=== PATIENT | female | born 1985 | race Caucasian/White ===

== ENCOUNTER 2016-09-15 16:47 | Emergency (ER) | payer MEDICAID ==
--- NOTE | 2016-09-15 18:36 | EDM.PDOC ---
ED HPI GI/ABDOMINAL - General Chief Complaint: Abdominal Pain Stated Complaint: ABD PAIN Time Seen by Provider: 09/15/16 17:00 Source: Reports: Patient History Limitations: Reports: No limitations - History of Present Illness INITIAL COMMENTS - FREE TEXT/NARRATIVE: 30 years old w f came to the ed 2 days after she woke up with sever pain at her left upper/periumbilical pain, no trauma, no n/v/d pt was seen at the clinic yesterday for same. UA was neg yesterday. FHT were 140 yesterday. Pt was told she has abd cramping. Pt took Ultram yesterday which did not help. LMP pt not remember. Pt stated she is due 01/18/2017. AB1 Symptom Onset Date: 09/14/16 Symptom Onset Time: 06:00 Timing/Duration: Reports: Day(s): Location: periumbilical Quality: Reports: ache, fullness Severity: moderate Improves with: Reports: lying down Worsens with: Reports: sitting up Associated Symptoms (-Female): Reports: denies other symptoms - Related Data Allergies/ADRs: Allergies Allergy/AdvReac Type Severity Reaction Status Date / Time acetaminophen [From Vicodin] Allergy Nausea Verified 09/20/14 13:04 hydrocodone bitartrate Allergy Nausea Verified 09/20/14 13:04 [From Vicodin] Sulfa (Sulfonamide Allergy Burning Verified 09/20/14 13:04 Antibiotics) Home Meds: Home Meds Vits #90/Iron Fum/FA [ Formula] 1 tab-cap PO ASDIRECTED [History] Acetaminophen/oxyCODONE [Percocet 325-5 MG] 1 each PO BID PRN #15 tab 02/07/14 [ Rx] Ferrous Sulfate 324 mg PO BIDM #60 tab.ec 02/07/14 [Rx] Meloxicam [Mobic] 15 mg PO DAILY PRN #20 tablet 05/19/14 [Rx] Past Medical History Genitourinary History: Reports: UTI, recurrent Other Genitourinary History: not present now 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 had c/section in 2013 and plans at [facility] Musculoskeletal History: Reports: Arthritis Other Musculoskeletal History: both knees Neurological History: Reports: Other (see below) 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 Psychiatric History: Reports: Anxiety, Depression - Past Surgical History HEENT Surgical History: Reports: Oral surgery GI Surgical History: Reports: Cholecystectomy Social & Family History - Family History HEENT: Reports: Cataract, Glaucoma OBGYN: Reports: None Musculoskeletal: Reports: Muscular dystrophy Psychiatric: Reports: Anxiety, Depression Endocrine/Metabolic: Reports: Diabetes, type II Oncologic: Reports: Breast, Other (see below) Other Oncologic Family History: melinoma - Tobacco Use Smoking Status *Q: Current Every Day Smoker Years of Tobacco use: 15 Packs/Tins Daily: 0.5 Used Tobacco, but Quit: No Second Hand Smoke Exposure: Yes - Alcohol Use Days Per Week of Alcohol Use: 0 - Recreational Drug Use Recreational Drug Use: No ED ROS GENERAL - Review of Systems Review Of Systems: See Below Constitutional: Reports: no symptoms HEENT: Reports: No symptoms Respiratory: Reports: No Symptoms Cardiovascular: Reports: No symptoms Endocrine: Reports: no symptoms GI/Abdominal: Reports: Abdominal pain : Reports: no symptoms Musculoskeletal: Reports: no symptoms Skin: Reports: no symptoms Neurological: Reports: No Symptoms Psychiatric: Reports: No symptoms Hematologic/Lymphatic: Reports: no symptoms Immunologic: Reports: no symptoms ED EXAM, GI/ABD - Physical Exam Exam: See Below Exam Limited By: No limitations General Appearance: alert, WD/WN, mild distress, obese Eyes: bilateral: normal appearance Ears: normal external exam Nose: normal inspection, normal mucosa Throat/Mouth: Normal inspection, Normal lips, Normal teeth Head: atraumatic, normocephalic Neck: normal inspection, supple, non-tender, full range of motion Respiratory/Chest: no respiratory distress, lungs clear, normal breath sounds, no accessory muscle use Cardiovascular: normal peripheral pulses, regular rate, rhythm, no edema GI/Abdominal: hypoactive bowel sounds, tenderness, mass (left upper abd. ) (Female) Exam: Deferred Rectal (Female) Exam: Deferred Back Exam: normal inspection, full range of motion Extremities: normal inspection, normal range of motion, non-tender, no pedal edema Neurological: alert, oriented, CN II-XII intact, normal cognition, normal gait Psychiatric: normal affect Skin Exam: Warm, Dry, Intact, Normal color, No rash Lymphatic: no adenopathy Course - Vital Signs Text/Narrative:: 30 years old w f came to the ed 2 days after she woke up with sever pain at her left upper/periumbilical pain, no trauma, no n/v/d pt was seen at the clinic yesterday for same. UA was neg yesterday. FHT were 140 yesterday. Pt was told she has abd cramping. Pt took Ultram yesterday which did not help. LMP pt not remember. Pt stated she is due 01/18/2017. AB1 PE: Abd. mass RUQ Labs:basically all NL. HCG is pending Imaging: US is not available Impression: Abd. pain during reexam: Pt refused NS, pain meds, was ambulating fine in the ed in no obvious discomfort Plan: D/C with instructions Last Recorded V/S: Last Vital Signs Temp 36.7 C 09/15/16 18:37 Pulse 72 09/15/16 18:37 Resp 18 09/15/16 18:37 BP 111/66 09/15/16 18:37 Pulse Ox 98 09/15/16 18:37 - Orders/Labs/Meds Labs: Laboratory Tests 09/15/16 09/15/16 09/15/16 Range/Units 17:30 17:30 17:30 WBC 11.2 (4.5-12.0) X10-3/uL RBC 3.65 (3.23-5.20) x10(6)uL Hgb 11.8 (11.5-15.5) g/dL Hct 34.6 (30.0-51.3) % MCV 94.9 (80-96) fL MCH 32.4 (27.7-33.6) pg MCHC 34.2 (32.2-35.4) g/dL RDW 13.1 (11.5-15.5) % Plt Count 254 (125-369) X10(3)uL MPV 8.5 (7.4-10.4) fL Neut % (Auto) 66.0 (46-82) % Lymph % (Auto) 28.2 (13-37) % Dubois % (Auto) 3.6 L (4-12) % Eos % (Auto) 2 (1.0-5.0) % Baso % (Auto) 0 (0-2) % Neut # (Auto) 7.4 (1.6-8.3) # Lymph # (Auto) 3.2 (0.6-5.0) # Dubois # (Auto) 0.4 (0.0-1.3) # Eos # (Auto) 0.2 (0.0-0.8) # Baso # (Auto) 0.0 (0.0-0.2) # Sodium 135 (135-145) mmol/L Potassium 3.8 (3.5-5.3) mmol/L Chloride 107 (100-110) mmol/L Carbon Dioxide 22 L (23-29) mmol/L BUN 7 (5-20) mg/dL Creatinine 0.5 L (0.6-1.3) mg/dL Est Cr Clr Drug Dosing 146.70 mL/min Estimated GFR (MDRD) > 60 (>60) BUN/Creatinine Ratio 14.0 (9-20) Glucose 82 (80-116) mg/dL Calcium 8.5 L (8.6-10.2) mg/dL Total Bilirubin 0.6 (0.1-1.3) mg/dL Direct Bilirubin 0.1 (0.1-0.2) mg/dL AST 10 D (5-27) IU/L ALT 5 L D (14-26) IU/L Alkaline Phosphatase 62 (56-112) IU/L Total Protein 6.7 (6.0-8.0) g/dL Albumin 3.2 L (3.5-5.2) g/dL Amylase 26 L (28-100) U/L HCG, Quant 6205 (2.0 - ) mIU/mL Urine Color (YELLOW) Urine Appearance (CLEAR) Urine pH (5.0-6.5) Ur Specific [place] (1.010-1.025) Urine Protein (NEGATIVE) mg/dL Urine Glucose (UA) (NEGATIVE) mg/dL Urine Ketones (NEGATIVE) mg/dL Urine Occult Blood (NEGATIVE) Urine Nitrite (NEGATIVE) Urine Bilirubin (NEGATIVE) Urine Urobilinogen (NEGATIVE) mg/dL Ur Leukocyte Esterase (NEGATIVE) Urine RBC (0) Urine WBC (0) Ur Squamous Epith Cells (NS,R,O) Urine Bacteria (NS) Urine Mucus (NS) 09/15/16 Range/Units 17:40 WBC (4.5-12.0) X10-3/uL RBC (3.23-5.20) x10(6)uL Hgb (11.5-15.5) g/dL Hct (30.0-51.3) % MCV (80-96) fL MCH (27.7-33.6) pg MCHC (32.2-35.4) g/dL RDW (11.5-15.5) % Plt Count (125-369) X10(3)uL MPV (7.4-10.4) fL Neut % (Auto) (46-82) % Lymph % (Auto) (13-37) % Dubois % (Auto) (4-12) % Eos % (Auto) (1.0-5.0) % Baso % (Auto) (0-2) % Neut # (Auto) (1.6-8.3) # Lymph # (Auto) (0.6-5.0) # Dubois # (Auto) (0.0-1.3) # Eos # (Auto) (0.0-0.8) # Baso # (Auto) (0.0-0.2) # Sodium (135-145) mmol/L Potassium (3.5-5.3) mmol/L Chloride (100-110) mmol/L Carbon Dioxide (23-29) mmol/L BUN (5-20) mg/dL Creatinine (0.6-1.3) mg/dL Est Cr Clr Drug Dosing mL/min Estimated GFR (MDRD) (>60) BUN/Creatinine Ratio (9-20) Glucose (80-116) mg/dL Calcium (8.6-10.2) mg/dL Total Bilirubin (0.1-1.3) mg/dL Direct Bilirubin (0.1-0.2) mg/dL AST (5-27) IU/L ALT (14-26) IU/L Alkaline Phosphatase (56-112) IU/L Total Protein (6.0-8.0) g/dL Albumin (3.5-5.2) g/dL Amylase (28-100) U/L HCG, Quant (2.0 - ) mIU/mL Urine Color Yellow (YELLOW) Urine Appearance Slightly cloudy (CLEAR) Urine pH 6.0 (5.0-6.5) Ur Specific [place] 1.020 (1.010-1.025) Urine Protein Negative (NEGATIVE) mg/dL Urine Glucose (UA) Normal (NEGATIVE) mg/dL Urine Ketones 50 H (NEGATIVE) mg/dL Urine Occult Blood Negative (NEGATIVE) Urine Nitrite Negative (NEGATIVE) Urine Bilirubin Negative (NEGATIVE) Urine Urobilinogen 1 H (NEGATIVE) mg/dL Ur Leukocyte Esterase Negative (NEGATIVE) Urine RBC 0-5 (0) Urine WBC 0-5 (0) Ur Squamous Epith Cells Many H (NS,R,O) Urine Bacteria Moderate H (NS) Urine Mucus Moderate H (NS) Departure - Departure Time of Disposition: 18:36 Disposition: Home, Self-Care 01 Condition: good Clinical Impression: Abdominal pain during Qualifiers: Trimester: second trimester Qualified Code(s): O26.892 - Other specified related conditions, second trimester Referrals: Manoj Souza MD [Primary Care Provider] - Forms: ED Department Discharge Additional Instructions: Please get your abd and pelvic US done at 10 am 09/16/2016. Please take tylenol for pain, no food intake 6 hours before the US is getting performed. Please come back if your symptoms get worse acutely.
[2016-09-15 18:38] VITALS: BP 111/66
== END 2016-09-15 19:10 | disposition home or self-care (01) ==
LOC: FB.ED 16:47
DX: O26.892 Other specified pregnancy related conditions, second trimester (principal); R10.12 Left upper quadrant pain; R10.33 Periumbilical pain; M19.90 Unspecified osteoarthritis, unspecified site; F41.9 Anxiety disorder, unspecified; F32.9 Major depressive disorder, single episode, unspecified; F17.210 Nicotine dependence, cigarettes, uncomplicated; Z87.440 Personal history of urinary (tract) infections; Z79.899 Other long term (current) drug therapy; Z88.2 Allergy status to sulfonamides; Z98.890 Other specified postprocedural states; Z90.49 Acquired absence of other specified parts of digestive tract; Z88.6 Allergy status to analgesic agent; Z3A.23 23 weeks gestation of pregnancy
CPT/HCPCS: 36415; 80048; 80076; 81001; 82150; 84702; 85025; 99284

== ENCOUNTER 2018-12-21 20:34 | Emergency (ER) | payer MEDICAID ==
[2018-12-21] MEDS ORDERED: Ibuprofen 600 MG Tab PO ONE (21:43)
[2018-12-21] MEDS ORDERED: Ondansetron 8 MG Tab.DIS PO ONE (21:43)
[2018-12-21] MEDS ORDERED: Acetaminophen/Codeine 300-30 MG Tab PO ONE (22:04)
[2018-12-21] MEDS ORDERED: Ketorolac 60 MG/2 ML SDV IM ONE (22:36)
[2018-12-21 22:48] VITALS: BP 147/75; PULSE 36
--- NOTE | 2018-12-21 22:52 | EDM.PDOC ---
ED HPI GENERAL MEDICAL PROBLEM - General Chief Complaint: Headache Stated Complaint: DIZZY Time Seen by Provider: 12/21/18 20:34 Source of Information: Reports: Patient, Family History Limitations: Reports: No Limitations - History of Present Illness INITIAL COMMENTS - FREE TEXT/NARRATIVE: 33 y.o.w.f came with her friends to the ed due to the worst headache ever. H/A started after she had an angio CT chest, which was neg for PE. Pt took Motrin for pain, without improvement. Zofran made her to vomit. No trauma. Pt has this kind of Headache never before. She rates the H/A as 10/10. No Dizziness, no vomiting; walking around makes her pain better. No Cp or SOB, no other acute med issues. 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, Other (see below) (zofran) headache Pain Score (Numeric/FACES): 4 - Related Data Allergies Allergy/AdvReac Type Severity Reaction Status Date / Time acetaminophen [From Vicodin] Allergy Nausea Verified 12/21/18 12:47 hydrocodone bitartrate Allergy Nausea Verified 12/21/18 12:47 [From Vicodin] Sulfa (Sulfonamide Allergy Burning Verified 12/21/18 12:47 Antibiotics) Past Medical History Genitourinary History: Reports: UTI, Recurrent Other Genitourinary History: not present now 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/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 in 2013 and plans at [facility] Musculoskeletal History: Reports: Arthritis Other Musculoskeletal History: both knees Neurological History: Reports: Other (See Below) 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" Psychiatric History: Reports: Anxiety, Depression - Infectious Disease History Infectious Disease History: Reports: Chicken Pox - Past Surgical History HEENT Surgical History: Reports: Oral Surgery GI Surgical History: Reports: Cholecystectomy Female Surgical History: Reports: None Neurological Surgical History: Reports: None Dermatological Surgical History: Reports: None Social & Family History - Family History Family Medical History: Noncontributory HEENT: Reports: Cataract, Glaucoma OBGYN: Reports: None Musculoskeletal: Reports: Muscular Dystrophy Psychiatric: Reports: Anxiety, Depression Endocrine/Metabolic: Reports: Diabetes, type II Oncologic: Reports: Breast, Other (See Below) Other Oncologic Family History: melinoma - Tobacco Use Smoking Status *Q: Current Every Day Smoker Years of Tobacco use: 15 Packs/Tins Daily: 1 - Caffeine Use Caffeine Use: Reports: Coffee, Soda - Recreational Drug Use Recreational Drug Use: No ED ROS GENERAL - Review of Systems Review Of Systems: See Below Constitutional: Reports: No Symptoms HEENT: Reports: No Symptoms Respiratory: Reports: No Symptoms Cardiovascular: Reports: No Symptoms Endocrine: Reports: No Symptoms GI/Abdominal: Reports: No Symptoms : Reports: No Symptoms Musculoskeletal: Reports: No Symptoms Skin: Reports: No Symptoms Neurological: Reports: Headache Psychiatric: Reports: No Symptoms Hematologic/Lymphatic: Reports: No Symptoms Immunologic: Reports: No Symptoms - Physical Exam Exam: See Below Exam Limited By: No Limitations General Appearance: Alert, WD/WN, Mild Distress Eye Exam: Bilateral Eye: Normal Inspection Ears: Normal External Exam, Normal Canal Nose: Normal Inspection, Normal Mucosa Throat/Mouth: Normal Inspection, Normal Lips, Normal Voice, No Airway Compromise Head Exam: Atraumatic, Normocephalic Neck: Normal Inspection, Supple, Non-Tender Respiratory/Chest: No Respiratory Distress, Lungs Clear, Normal Breath Sounds, Chest Non-Tender Cardiovascular: Normal Peripheral Pulses, Regular Rate, Rhythm GI/Abdominal: Normal Bowel Sounds, Soft, Non-Tender, No Abnormal Bruit (Female) Exam: Deferred Rectal (Female) Exam: Deferred Neuro Exam (Abbreviated): Alert, Oriented, CN II-XII Intact, Normal Cognition, Normal Gait, No Motor/Sensory Deficits DTR: 1+: Bicep (L) Back Exam: Normal Inspection Extremities: Normal Inspection, Normal Range of Motion, Non-Tender, Normal Capillary Refill Psychiatric: Normal Affect, Normal Mood Skin Exam: Warm, Dry, Intact, Normal Color, No Rash Course - Vital Signs Text/Narrative:: 33 y.o.w.f came with her friends to the ed due to the worst headache ever. H/A started after she had an angio CT chest, which was neg for PE. Pt took Motrin for pain, without improvement. Zofran made her to vomit. No trauma. Pt has this kind of Headache never before. She rates the H/A as 10/10. No Dizziness, no vomiting; walking around makes her pain better. No Cp or SOB, no other acute med issues. BP 157/78 HR 34 Pulse ox 99% on RA RR 14 Temp 37.1 PE:WNWD W F with H/A, Pt finished her Z-Pack yesterday. No Mastoid tenderness Imaging: CT head: NAD as per RAD Labs: not indicated. Impression: Tension Headache, Stanford mastoid effusions Tx: Toradol, Zofran. Reexam: improved Plan: D/C with instructions Last Recorded V/S: Last Vital Signs Temp 36.5 C 12/21/18 22:48 Pulse 36 L 12/21/18 22:48 Resp 14 12/21/18 22:48 BP 147/75 H 12/21/18 22:48 Pulse Ox 100 12/21/18 22:48 - Orders/Labs/Meds Orders: Active Orders 24 hr Category Date Time Status Head wo Cont [CT] Stat Exams 12/21/18 21:43 Taken Meds: Medications Discontinued Medications Generic Name Dose Route Start Last Admin Trade Name Veronica PRN Reason Stop Dose Admin Acetaminophen/Codeine Phosphate 1 tab 12/21/18 22:04 12/21/18 22:08 Tylenol With Codeine No.3 300mg/30mg PO 12/21/18 22:05 1 tab ONETIME ONE Administration Ibuprofen 600 mg 12/21/18 21:43 Motrin PO 12/21/18 21:44 ONETIME ONE Ketorolac Tromethamine 60 mg 12/21/18 22:36 12/21/18 22:40 Toradol IM 12/21/18 22:37 60 mg ONETIME ONE Administration Ondansetron HCl 8 mg 12/21/18 21:43 12/21/18 21:49 Zofran Odt PO 12/21/18 21:44 8 mg ONETIME ONE Administration Departure - Departure Time of Disposition: 22:51 Disposition: Home, Self-Care 01 Condition: Good Clinical Impression: Tension headache - Discharge Information Instructions: Ketorolac injection, Tension Headache, Adult Referrals: PCP,None [Primary Care Provider] - Forms: ED Department Discharge Additional Instructions: Please f/u with your PMD, please take zofran/Motrin for pain, came back if your symptoms get worse acutely - My Orders Last 24 Hours: My Active Orders 12/21/18 21:43 Head wo Cont [CT] Stat - Assessment/Plan Last 24 Hours: My Active Orders 12/21/18 21:43 Head wo Cont [CT] Stat
== END 2018-12-21 22:56 | disposition home or self-care (01) ==
LOC: FB.ED 20:34
DX: G44.209 Tension-type headache, unspecified, not intractable (principal); R06.02 Shortness of breath; Z90.49 Acquired absence of other specified parts of digestive tract; H74.8X3 Other specified disorders of middle ear and mastoid, bilateral; F17.210 Nicotine dependence, cigarettes, uncomplicated; Z88.2 Allergy status to sulfonamides; Z88.5 Allergy status to narcotic agent
CPT/HCPCS: 70450; 71275; 96372; 99284; A9270; J1885; Q9967

== ENCOUNTER 2020-02-07 07:17 | Emergency (ER) | payer MEDICAID, OTHER ==
[2020-02-07 07:36] VITALS: BP 122/90; PULSE 89
[2020-02-07] MEDS ORDERED: Ondansetron 8 MG Tab.DIS PO ONE (07:47)
--- NOTE | 2020-02-07 07:54 | EDM.PDOC ---
ED HPI GENERAL MEDICAL PROBLEM - General Chief Complaint: Headache Stated Complaint: POSSIBLE COVID Time Seen by Provider: 02/07/20 07:40 Source of Information: Reports: Patient, Old Records History Limitations: Reports: No Limitations - History of Present Illness INITIAL COMMENTS - FREE TEXT/NARRATIVE: Eloina comes into [facility] ED with an 18 hr hx of headache, GI upset including nausea, emesis x 5 of partially digested food, and 3-4 diarrheal stools. Headache was cervical-occipital in duration, aching, and nonmigrating. Nausea and vomiting came later in the evening, without blood detected. Her throat was sore this am, with appearance of nonproductive cough. Diarrhea is less certain, as this occurs spontaneously in the past. She took Ibuprofen for the headache, but did not take Zofran for the nausea. 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 headache Pain Score (Numeric/FACES): 6 - Related Data Allergies Allergy/AdvReac Type Severity Reaction Status Date / Time acetaminophen [From Vicodin] Allergy Nausea Verified 02/07/20 07:36 hydrocodone bitartrate Allergy Nausea Verified 02/07/20 07:36 [From Vicodin] Sulfa (Sulfonamide Allergy Burning Verified 02/07/20 07:36 Antibiotics) bandaids Allergy Rash Uncoded 02/07/20 07:44 Home Meds: Home Meds Amoxicillin 500 mg PO TID 02/07/20 [History] Baclofen 20 mg PO TID 02/07/20 [History] Gabapentin [Neurontin] 600 mg PO TID 02/07/20 [History] Teriflunomide [Aubagio] 14 mg PO DAILY 02/07/20 [History] Past Medical History Genitourinary History: Reports: UTI, Recurrent Other Genitourinary History: not present now 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 had c/section in 2013 and plans at [facility] Musculoskeletal History: Reports: Arthritis Other Musculoskeletal History: both knees Neurological History: Reports: MS, Other (See Below) 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" Psychiatric History: Reports: Anxiety, Depression - Infectious Disease History Infectious Disease History: Reports: Chicken Pox - Past Surgical History HEENT Surgical History: Reports: Oral Surgery GI Surgical History: Reports: Cholecystectomy Female Surgical History: Reports: None Neurological Surgical History: Reports: None Dermatological Surgical History: Reports: None Social & Family History - Family History Family Medical History: Noncontributory HEENT: Reports: Cataract, Glaucoma OBGYN: Reports: None Musculoskeletal: Reports: Muscular Dystrophy Psychiatric: Reports: Anxiety, Depression Endocrine/Metabolic: Reports: Diabetes, type II Oncologic: Reports: Breast, Other (See Below) Other Oncologic Family History: melinoma - Tobacco Use Smoking Status *Q: Current Every Day Smoker Years of Tobacco use: 15 Packs/Tins Daily: 1 - Caffeine Use Caffeine Use: Reports: Coffee, Soda - Recreational Drug Use Recreational Drug Use: No ED ROS GENERAL - Review of Systems Review Of Systems: Comprehensive ROS is negative, except as noted in HPI. ED EXAM, GENERAL - Physical Exam Exam: See Below Exam Limited By: No Limitations General Appearance: Alert, WD/WN, No Apparent Distress, Obese Eye Exam: Bilateral Eye: EOMI, Normal Inspection, PERRL Ears: Normal External Exam, Normal TMs Nose: Normal Inspection Throat/Mouth: Normal Lips, Normal Voice, No Airway Compromise, Inflammation Head: Normocephalic Neck: Normal Inspection, Supple, Non-Tender, Full Range of Motion Respiratory/Chest: Lungs Clear, Normal Breath Sounds, Chest Non-Tender Cardiovascular: Normal Peripheral Pulses, Regular Rate, Rhythm, No Edema, No JVD, No Murmur GI/Abdominal: Normal Bowel Sounds, Soft, Non-Tender, No Organomegaly, No Distention, No Mass (Female) Exam: Deferred Rectal (Female) Exam: Deferred Back Exam: Normal Inspection, Full Range of Motion Extremities: Normal Inspection, Normal Range of Motion Neurological: Alert, Oriented, CN II-XII Intact, Normal Cognition, Normal Gait Psychiatric: Normal Affect, Normal Mood Skin Exam: Warm, Dry, Intact, Normal Color Lymphatic: No Adenopathy Course - Vital Signs Text/Narrative:: Patient chose to depart from ED before results were available. Screening labwork including CBC, BMP, RSS, and Covid 19 all baseline or negative. A suspected viral illness will be managed symptomatically, and patient contacted at home. Last Recorded V/S: Last Vital Signs Temp 36.4 C 02/07/20 07:17 Pulse 89 02/07/20 07:17 Resp 20 02/07/20 07:17 BP 122/90 02/07/20 07:17 Pulse Ox 99 02/07/20 07:17 - Orders/Labs/Meds Orders: Active Orders 24 hr Category Date Time Status CULTURE STREP A CONFIRMATION [RM] Stat Lab 02/07/20 08:00 Results STREP SCRN A RAPID W CULT CONF [RM] Stat Lab 02/07/20 08:00 Results UA W/MICROSCOPIC [URIN] Stat Lab 02/07/20 07:47 Ordered Labs: Laboratory Tests 02/07/20 02/07/20 02/07/20 Range/Units 08:00 08:00 08:00 WBC 8.7 (4.5-12.0) X10-3/uL RBC 4.82 (3.23-5.20) x10(6)uL Hgb 14.7 (11.5-15.5) g/dL Hct 45.2 D (30.0-51.3) % MCV 93.8 (80-96) fL MCH 30.6 (27.7-33.6) pg MCHC 32.6 (32.2-35.4) g/dL RDW 12.2 (11.5-15.5) % Plt Count 221 (125-369) X10(3)uL MPV 8.7 (7.4-10.4) fL Neut % (Auto) 72.5 (46-82) % Lymph % (Auto) 19.5 (13-37) % [place] % (Auto) 4.2 (4-12) % Eos % (Auto) 1 (1.0-5.0) % Baso % (Auto) 3 H (0-2) % Neut # (Auto) 6.3 (1.6-8.3) # Lymph # (Auto) 1.7 (0.6-5.0) # [place] # (Auto) 0.4 (0.0-1.3) # Eos # (Auto) 0.1 (0.0-0.8) # Baso # (Auto) 0.2 (0.0-0.2) # Sodium 139 (135-145) mmol/L Potassium 3.9 (3.5-5.3) mmol/L Chloride 103 (100-110) mmol/L Carbon Dioxide 27 (21-32) mmol/L BUN 11 (7-18) mg/dL Creatinine 0.7 (0.55-1.02) mg/dL Est Cr Clr Drug Dosing 100.94 mL/min Estimated GFR (MDRD) > 60 (>60) BUN/Creatinine Ratio 15.7 (9-20) Glucose 238 H (80-116) mg/dL Calcium 9.0 (8.6-10.2) mg/dL SARS-CoV-2 RNA (SIMÓN) Negative (NEGATIVE) Meds: Medications Discontinued Medications Generic Name Dose Route Start Last Admin Trade Name Freq PRN Reason Stop Dose Admin Ondansetron HCl 8 mg 02/07/20 07:47 02/07/20 07:57 Zofran Odt PO 02/07/20 07:48 8 mg ONETIME ONE Administration Departure - Departure Time of Disposition: 09:45 Disposition: Home, Self-Care 01 Condition: Fair Clinical Impression: Viral respiratory illness - Discharge Information *PRESCRIPTION DRUG MONITORING PROGRAM REVIEWED*: Not Applicable *COPY OF PRESCRIPTION DRUG MONITORING REPORT IN PATIENT VIDA: Not Applicable Referrals: Rand Delgado PA-C [Primary Care Provider] - Forms: ED Department Discharge Sepsis Event Note (ED) - Evaluation Sepsis Screening Result: No Definite Risk - Focused Exam Vital Signs: Vital Signs Temp Pulse Resp BP Pulse Ox 02/07/20 07:17 36.4 C 89 20 122/90 99 - Problem List & Annotations (1) Viral respiratory illness SNOMED Code(s): 057160740 Code(s): J98.8 - OTHER SPECIFIED RESPIRATORY DISORDERS; B97.89 - OTH VIRAL AGENTS THE CAUSE OF DISEASES CLASSD [id number] Status: Acute Annotation/Comment:: I suggested throat lozenges, analgesic of choice, cough med of choice, hydration, and rest. - Problem List Review Problem List Initiated/Reviewed/Updated: Yes - My Orders Last 24 Hours: My Active Orders 02/07/20 07:47 UA W/MICROSCOPIC [URIN] Stat 02/07/20 08:00 CULTURE STREP A CONFIRMATION [RM] Stat STREP SCRN A RAPID W CULT CONF [] Stat - Assessment/Plan Last 24 Hours: My Active Orders 02/07/20 07:47 UA W/MICROSCOPIC [URIN] Stat 02/07/20 08:00 CULTURE STREP A CONFIRMATION [RM] Stat STREP SCRN A RAPID W CULT CONF [] Stat Plan: Follow up with PCP if needed.
== END 2020-02-07 08:13 | disposition home or self-care (01) ==
LOC: FB.ED 07:17
DX: J98.8 Other specified respiratory disorders (principal); B34.9 Viral infection, unspecified; F17.210 Nicotine dependence, cigarettes, uncomplicated; E66.9 Obesity, unspecified; Z88.5 Allergy status to narcotic agent; Z88.2 Allergy status to sulfonamides; Z88.8 Allergy status to other drugs, medicaments and biological substances; Z79.899 Other long term (current) drug therapy; Z90.49 Acquired absence of other specified parts of digestive tract; Z68.38 Body mass index [BMI] 38.0-38.9, adult; Z11.59 Encounter for screening for other viral diseases
CPT/HCPCS: 36415; 80048; 85025; 87081; 87635; 87880; 99284; A9270; 99283; U0002

== ENCOUNTER 2020-08-17 22:15 | Emergency (ER) | payer MEDICAID ==
--- NOTE | 2020-08-17 22:47 | EDM.PDOC ---
ED HPI GENERAL MEDICAL PROBLEM - General Chief Complaint: General Stated Complaint: HIGH BLOOD PRESSURE Time Seen by Provider: 08/17/20 22:45 Source of Information: Reports: Patient History Limitations: Reports: No Limitations - History of Present Illness INITIAL COMMENTS - FREE TEXT/NARRATIVE: Presents with elevated BP. Patient tested positive for COVID 10 days ago and received the BAM infusion on 08/11/20. She was told her BP was elevated the day of the infusion. Patient decided to check her BP today, and it was elevated up to 180/114, but was down to 151/108 [employer]IGAR P[employer]ER. She complains of substernal chest pain and cough. Denies prior h/o CAD or HTN. - Related Data Allergies Allergy/AdvReac Type Severity Reaction Status Date / Time acetaminophen [From Vicodin] Allergy Nausea Verified 08/17/20 23:12 hydrocodone bitartrate Allergy Nausea Verified 08/17/20 23:12 [From Vicodin] Sulfa (Sulfonamide Allergy Burning, Verified 08/17/20 23:12 Antibiotics) Watery Eyes bandaids Allergy Rash Uncoded 08/17/20 23:15 seasonal Allergy Sinus Uncoded 08/17/20 23:12 Issues Home Meds: Home Meds Baclofen 20 mg PO TID 02/07/20 [History] Teriflunomide [Aubagio] 14 mg PO BEDTIME 02/07/20 [History] Amphetamine/Dextroamphetamine [Adderall] 20 mg PO BID 08/17/20 [History] Gabapentin [Neurontin] 600 mg PO TID 08/17/20 [History] Past Medical History Genitourinary History: Reports: UTI, Recurrent Other Genitourinary History: not present now 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 in 2013 and plans at [facility] Musculoskeletal History: Reports: Arthritis Other Musculoskeletal History: both knees Neurological History: Reports: MS, Other (See Below) 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" Psychiatric History: Reports: Anxiety, Depression - Infectious Disease History Infectious Disease History: Reports: Chicken Pox - Past Surgical History HEENT Surgical History: Reports: Oral Surgery GI Surgical History: Reports: Cholecystectomy Female Surgical History: Reports: None Neurological Surgical History: Reports: None Dermatological Surgical History: Reports: None Social & Family History - Family History Family Medical History: No Pertinent Family History HEENT: Reports: Cataract, Glaucoma OBGYN: Reports: None Musculoskeletal: Reports: Muscular Dystrophy Psychiatric: Reports: Anxiety, Depression Endocrine/Metabolic: Reports: Diabetes, type II Oncologic: Reports: Breast, Other (See Below) Other Oncologic Family History: melinoma - Tobacco Use Tobacco Use Status *Q: Current Every Day Tobacco User Tobacco Use Within Last Twelve Months: Cigarettes - Caffeine Use Caffeine Use: Reports: Coffee, Soda ED ROS GENERAL - Review of Systems Review Of Systems: Comprehensive ROS is negative, except as noted in HPI. ED EXAM, GENERAL - Physical Exam Exam: See Below Exam Limited By: No Limitations General Appearance: Alert, WD/WN, No Apparent Distress Nose: Normal Inspection Throat/Mouth: No Airway Compromise Head: Atraumatic, Normocephalic Neck: Full Range of Motion Respiratory/Chest: No Respiratory Distress, Lungs Clear, Normal Breath Sounds Cardiovascular: Regular Rate, Rhythm, No Murmur Neurological: Alert, Normal Cognition Psychiatric: Normal Affect, Normal Mood Skin Exam: Warm, Dry, Intact #1 Interpretation EKG Date: 08/17/20 Time: 22:48 Rhythm: NSR Rate (Beats/Min): 99 [place]: RAD-Right [place] Deviation (borderline) P-Wave: Present QRS: Normal ST-T: Normal QT: Normal Comparison: NA - No Prior EKG Course - Vital Signs Last Recorded V/S: Last Vital Signs Temp 36.6 C 08/17/20 23:35 Pulse 100 08/17/20 23:35 Resp 16 08/17/20 23:35 BP 139/88 08/17/20 23:35 Pulse Ox 97 08/17/20 23:35 - Orders/Labs/Meds Orders: Active Orders 24 hr Category Date Time Status EKG Documentation Completion [RC] ASDIRECTED Care 08/17/20 22:45 Active CXR [Chest 2V] [CR] Stat Exams 08/17/20 22:44 Taken EKG 12 Lead [EK] Stat Ther 08/17/20 22:44 Ordered Labs: Laboratory Tests 08/17/20 08/17/20 08/17/20 Range/Units 22:55 22:55 22:55 WBC 9.5 (3.0-10.3) x10-3/uL RBC 4.20 (3.60-5.20) x10(6)uL Hgb 13.3 (11.4-15.5) g/dL Hct 40.0 (34.2-48.2) % MCV 95.2 (76.7-100.5) fL MCH 31.6 (23.9-33.9) pg MCHC 33.2 (31.9-34.8) g/dL RDW 13.0 (12.3-16.5) % Plt Count 185 (151-488) x10(3)uL MPV 9.4 (7.1-12.4) fL Neut % (Auto) 64.3 (30.8-76.2) % Lymph % (Auto) 29.1 (18.4-52.1) % [place] % (Auto) 4.3 L (4.4-15.7) % Eos % (Auto) 1.5 (0.6-8.1) % Baso % (Auto) 0.8 (0.2-1.5) % Neut # (Auto) 6.1 (1.5-6.3) x10-3/uL Lymph # (Auto) 2.8 (1.0-4.4) x10-3/uL [place] # (Auto) 0.4 (0.3-1.0) x10-3/uL Eos # (Auto) 0.1 (0.0-0.8) x10-3/uL Baso # (Auto) 0.1 (0.0-0.1) x10-3/uL Sodium 141 (135-145) mmol/L Potassium 3.3 L (3.5-5.3) mmol/L Chloride 103 (100-110) mmol/L Carbon Dioxide 27 (21-32) mmol/L BUN 11 (7-18) mg/dL Creatinine 0.7 (0.55-1.02) mg/dL Est Cr Clr Drug Dosing 100.94 mL/min Estimated GFR (MDRD) > 60 (>60) BUN/Creatinine Ratio 15.7 (9-20) Glucose 132 H D (80-116) mg/dL Calcium 9.0 (8.6-10.2) mg/dL Total Bilirubin 0.5 (0.1-1.3) mg/dL AST 16 (5-25) IU/L ALT 17 (12-36) U/L Alkaline Phosphatase 108 (56-112) IU/L Troponin I 3.7 L (4.0-60.3) pg/mL Total Protein 6.7 (6.0-8.0) g/dL Albumin 3.3 L (3.5-5.2) g/dL Globulin 3.4 g/dL Albumin/Globulin Ratio 1.0 - Radiology Interpretation Free Text/Narrative:: CXR: No acute process. (ED provider interpretation) - Re-Assessments/Exams Free Text/Narrative Re-Assessment/Exam: 08/17/20 23:58 BP improved spontaneously to 139/88 Departure - Departure Time of Disposition: 23:58 Disposition: Home, Self-Care 01 Condition: Good Clinical Impression: Hypertension Qualifiers: Hypertension type: unspecified Qualified Code(s): I10 - Essential (primary) hypertension - Discharge Information *PRESCRIPTION DRUG MONITORING PROGRAM REVIEWED*: No *COPY OF PRESCRIPTION DRUG MONITORING REPORT IN PATIENT VIDA: Not Applicable Instructions: Hypertension, Adult, [id number], Steps to Quit Smoking, [id number] Referrals: Rand Delgado PA-C [Primary Care Provider] - 2 Days Forms: ED Department Discharge Additional Instructions: Follow up with your primary physician in 2-3 days. Return to the ER as needed. Sepsis Event Note (ED) - Focused Exam Vital Signs: Vital Signs Temp Pulse Resp BP Pulse Ox 08/17/20 23:35 36.6 C 100 16 139/88 97 08/17/20 22:30 36.6 C 103 H 18 154/99 H 98 - My Orders Last 24 Hours: My Active Orders 08/17/20 22:44 CXR [Chest 2V] [CR] Stat EKG 12 Lead [EK] Stat 08/17/20 22:45 EKG Documentation Completion [RC] ASDIRECTED - Assessment/Plan Last 24 Hours: My Active Orders 08/17/20 22:44 CXR [Chest 2V] [CR] Stat EKG 12 Lead [EK] Stat 08/17/20 22:45 EKG Documentation Completion [RC] ASDIRECTED
--- NOTE | 2020-08-17 23:02 | PCM.EKG ---
#1 Interpretation EKG Date: 08/17/20 Time: 22:48 Rhythm: NSR Rate (Beats/Min): 99 [place]: RAD-Right [place]ena Deviation (borderline) P-Wave: Present QRS: Normal ST-T: Normal QT: Normal Comparison: NA - No Prior EKG
[2020-08-17 23:39] VITALS: BP 139/88; PULSE 100
--- NOTE | 2020-08-18 11:41 | CR ---
INDICATION: Chest pain, cough, shortness of breath, high blood pressure. Diagnosed with COVID 08/06/20. CHEST, TWO VIEWS: PA and lateral views of the chest were obtained 08/17/20 - no comparisons. The heart and mediastinum are unremarkable. A mild dextroconcave scoliosis of the lower middle thoracic spine is noted. Evidence of exogenous obesity is noted. An active infiltrate or effusion was not identified. IMPRESSION: 1. No acute process. 2. Exogenous obesity. 3. Mild scoliosis. MTDD
== END 2020-08-18 00:10 | disposition home or self-care (01) ==
LOC: FB.ED 22:15
DX: I10 Essential (primary) hypertension (principal); R07.2 Precordial pain; R05 Cough; M19.90 Unspecified osteoarthritis, unspecified site; Z86.16 Personal history of COVID-19; Z72.0 Tobacco use; Z88.6 Allergy status to analgesic agent; Z88.5 Allergy status to narcotic agent; Z88.2 Allergy status to sulfonamides; Z91.048 Other nonmedicinal substance allergy status
CPT/HCPCS: 36415; 71046; 80053; 84484; 85025; 93005; 93010; 99283; 99284-25

== ENCOUNTER 2020-10-09 23:23 | Emergency (ER) | payer MEDICAID ==
[2020-10-10 00:04] VITALS: BP 144/92; PULSE 90
--- NOTE | 2020-10-10 00:16 | EDM.PDOC ---
ED HPI GENERAL MEDICAL PROBLEM - General Chief Complaint: Cardiovascular Problem Stated Complaint: HIGH BP Time Seen by Provider: 10/09/20 23:50 Source of Information: Reports: Patient History Limitations: Reports: No Limitations - History of Present Illness INITIAL COMMENTS - FREE TEXT/NARRATIVE: 34-year-old female who reports that she received her infusion of Ocrevus for her multiple sclerosis and is given Decadron IV. She tolerated this infusion well at the time without any symptoms. Apparently when she was first diagnosed with MS and had optic neuritis he was given high-dose Solu-Medrol and did have quite a bit of adverse symptoms related to this with headache and malaise and nausea with vomiting. She states she was really feeling okay except for some mild photophobia that she has had for quite some time until approximately one hour prior to arrival tonight when she developed feelings that her heart was beating fast and she was feeling somewhat short of breath with this. She took her blood pressure and it was 158/120 and her pulse rate was in the 110-120 range. She felt "ichy all over". She had nausea but no vomiting. No chest pain associated with this. When she arrives to the emergency department, her symptoms seem to be improving and by the time I am evaluating her, her symptoms are almost gone. Her pulse rate is in the 80s and her blood pressure is 140s over 90s. No fevers or chills. No cough. She really denies any pain at present. She would rate her pain as a 0/10. The patient also tells me that she has been having increased urination over the past week or so and they even checked her urine test today and it showed no evidence of infection. She has been diagnosed with diabetes mellitus but is on no medications at present. She has a diabetic doctor that she is to follow-up with on this coming Tuesday. There are no other associated signs or symptoms. There are no other modifying factors. Review the patient's records reveal that she was here and of July 2020 with very similar symptoms and had complete workup which included blood tests, EKG and chest x-ray and all of this was reassuring. And, apparently, her symptoms resolved while she was in the emergency department at that time as well. 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.) - Related Data Allergies Allergy/AdvReac Type Severity Reaction Status Date / Time acetaminophen [From Vicodin] Allergy Nausea Verified 10/10/20 00:18 hydrocodone bitartrate Allergy Nausea Verified 10/10/20 00:18 [From Vicodin] Sulfa (Sulfonamide Allergy Burning, Verified 10/10/20 00:18 Antibiotics) Watery Eyes bandaids Allergy Rash Uncoded 10/10/20 00:18 seasonal Allergy Sinus Uncoded 10/10/20 00:18 Issues Home Meds: Home Meds Baclofen 20 mg PO TID 02/07/20 [History] Teriflunomide [Aubagio] 14 mg PO BEDTIME 02/07/20 [History] Amphetamine/Dextroamphetamine [Adderall] 20 mg PO BID 08/17/20 [History] Gabapentin [Neurontin] 600 mg PO TID 08/17/20 [History] Past Medical History Genitourinary History: Reports: UTI, Recurrent 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 History of C-sections. Musculoskeletal History: Reports: Arthritis Other Musculoskeletal History: Both knees. Neurological History: Reports: MS, Other (See Below) Other Neuro History: States Trigeminal Neuralogia-history of [place] Palsy. Experiences leg spasms and nerve pain. Psychiatric History: Reports: ADD, Anxiety, Depression Endocrine/Metabolic History: Reports: Obesity/BMI 30+ - Infectious Disease History Infectious Disease History: Reports: Chicken Pox - Past Surgical History HEENT Surgical History: Reports: Oral Surgery ([place] teeth extraction) GI Surgical History: Reports: Cholecystectomy Female Surgical History: Reports: LEEP Endocrine Surgical History: Reports: Other (See Below) (Partial thyroidectomy) Social & Family History - Family History HEENT: Reports: Cataract, Glaucoma OBGYN: Reports: None Musculoskeletal: Reports: Muscular Dystrophy Psychiatric: Reports: Anxiety, Depression Endocrine/Metabolic: Reports: Diabetes, type II Oncologic: Reports: Breast, Other (See Below) Other Oncologic Family History: Melanoma. 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 This has resolved now.) Cardiovascular: Reports: Palpitations GI/Abdominal: Reports: Nausea : Reports: Other (Increased urination) Musculoskeletal: Reports: Other Skin: Reports: No Symptoms Neurological: Reports: No Symptoms Psychiatric: Reports: Anxiety Hematologic/Lymphatic: Reports: No Symptoms Immunologic: Reports: Other (Received infusion of Ocrevus today.) ED EXAM, GENERAL - Physical Exam Exam: See Below Exam Limited By: No Limitations General Appearance: Alert, No Apparent Distress, Anxious, Obese Eye Exam: Bilateral Eye: EOMI, Normal Inspection Ears: Normal External Exam, Hearing Grossly Normal Ear Exam: Bilateral Ear: Auricle Normal Nose: Normal Inspection, Normal Mucosa, No Blood, Nasal Drainage Throat/Mouth: Normal Inspection, Normal Oropharynx, Normal Voice, No Airway Compromise Head: Atraumatic, Normocephalic Neck: Normal Inspection, Supple, Non-Tender, Full Range of Motion Respiratory/Chest: No Respiratory Distress, Normal Breath Sounds, No Accessory Muscle Use, Chest Non-Tender, Wheezing (Bilateral wheezes that clear with cough. Good air movement.) Cardiovascular: Normal Peripheral Pulses, Regular Rate, Rhythm, No Edema Peripheral Pulses: 2+: Radial (L), Radial (R), Dorsalis Pedis (L), Dorsalis Pedis (R) GI/Abdominal: Normal Bowel Sounds, Soft, Non-Tender Back Exam: Normal Inspection, Full Range of Motion Extremities: Normal Inspection, Normal Range of Motion, No Pedal Edema, Normal Capillary Refill, Pedal Edema Neurological: Alert, Oriented, CN II-XII Intact, No Motor/Sensory Deficits Psychiatric: Normal Affect, Anxious Skin Exam: Warm, Dry, Intact, Normal Color, No Rash Course - Vital Signs Last Recorded V/S: Last Vital Signs Temp 36.6 C 10/09/20 23:30 Pulse 90 10/09/20 23:30 Resp 16 10/09/20 23:30 BP 144/92 H 10/09/20 23:30 Pulse Ox 99 10/09/20 23:30 - Re-Assessments/Exams Free Text/Narrative Re-Assessment/Exam: 10/10/20 00:08: Patient is awake and alert. She seems somewhat anxious. Her blood pressure is improved over what she has reported. Her pulse rate is in the 80s. Her exam is otherwise reassuring. She does have a blood sugar of 243 (the patient self checked it). She is also currently under quite a bit of stress in her life and has a court date tomorrow and she has been drinking caffeinated and regular pop and has been eating quite a bit of concentrated sweets today. She did have a reaction to Solu-Medrol the past and she did receive dexamethasone today. She was seen for elevated blood pressure and similar type symptoms about a month and a half ago and all of her blood tests were reassuring and her EKG was normal. Other than the blood sugar that she provided for me, I don't feel that there is a need for any further diagnostic testing at this point. Her symptoms seem to be going away and she is improving. Feel that she is stable for discharge at this point. I discussed all this with the patient and she is in agreement with the plan for discharge. She does need to keep her appointment with her doctor on Tuesday that she has scheduled in regard to her diabetes mellitus. I did advise the patient to stick with diabetic diet. Departure - Departure Time of Disposition: 00:18 Disposition: Home, Self-Care 01 Condition: Good (Stable.) Clinical Impression: Elevated blood pressure reading, Multiple sclerosis Diabetes mellitus type 2, uncontrolled Qualifiers: Glycemic state: with hyperglycemia Qualified Code(s): E11.65 - Type 2 diabetes mellitus with hyperglycemia Instructions: Hyperglycemia, [id number], Hypertension, Adult, [id number], Diabetes Mellitus and Nutrition, Adult Referrals: Rand Delgado PA-C [Primary Care Provider] - Forms: ED Department Discharge Additional Instructions: Your blood pressure improved while you were in the emergency department. Your heart rate was normal in the emergency department. Your exam was reassuring. Your blood sugar was elevated when you checked it in the emergency department. Rest. You need to increase your fluid intake. You should avoid any salt or sodium. You should avoid any concentrated sweets and processed foods. Keep your appointment with your diabetic doctor this coming week. Back to the emergency department for persistent/recurrent fast heart rate, unrelenting vomiting, trouble breathing or chest pain, severe weakness or any other concerning signs or symptoms. Sepsis Event Note (ED) - Evaluation Sepsis Screening Result: No Definite Risk - Focused Exam Vital Signs: Vital Signs Temp Pulse Resp BP Pulse Ox 10/09/20 23:30 36.6 C 90 16 144/92 H 99
== END 2020-10-10 00:25 | disposition home or self-care (01) ==
LOC: FB.ED 23:23
DX: E11.65 Type 2 diabetes mellitus with hyperglycemia (principal); R03.0 Elevated blood-pressure reading, without diagnosis of hypertension; G35 Multiple sclerosis; E66.9 Obesity, unspecified; Z68.35 Body mass index [BMI] 35.0-35.9, adult; Z88.6 Allergy status to analgesic agent; Z88.2 Allergy status to sulfonamides; Z91.048 Other nonmedicinal substance allergy status; Z79.899 Other long term (current) drug therapy
CPT/HCPCS: 99284

== ENCOUNTER 2020-10-27 17:47 | Emergency (ER) | payer MEDICAID ==
--- NOTE | 2020-10-27 18:03 | EDM.PDOC ---
ED HPI GENERAL MEDICAL PROBLEM - General Time Seen by Provider: 10/27/20 18:03 Source of Information: Reports: Patient History Limitations: Reports: No Limitations - History of Present Illness INITIAL COMMENTS - FREE TEXT/NARRATIVE: 34 year-old female who reports that she got her second dose of Ocevus and dexamethasone just on Tuesday of this last week. Should be noted that the past 2 time she has received his medication she has had nausea and vomiting and has presented to the emergency department. She reports that after the medication was given she was feeling well until today at about 2:30 to 3 PM. She developed acute onset of occipital and retro-orbital headache on the right side. It was associated with nausea and vomiting and she reports she's had vomiting times about 15. Prior to this they were outside in enjoying the weather and day and she felt that she had been drinking liquids but it was rather hot. She currently rates her headache as a 10/10. There is definite photophobia associated with it and continued nausea with dry heaving. This is a pattern she has had with her headaches in the past and that she has had a headache very similar to this and review of her records show that she has had these type of symptoms after her shins this recently. No fevers or chills. No arm or leg weakness. No fevers or chills. No sore throat or trouble swallowing. She had been eating and drinking normally prior to this. No diarrhea. There are no other associated signs or symptoms. There are no other modifying factors. Onset: Today (2:30 to 3 PM) Duration: Constant Location: Reports: Head Quality: Reports: Sharp, Throbbing Severity: Severe Improves with: Reports: None Worsens with: Reports: Other (Light), Movement Context: Reports: Other (As above.) Associated Symptoms: Reports: No Other Symptoms (Except as above.) Treatments BENEFITS DIRECTOR: Reports: Other (see below) (Nothing.) Headache Pain Score (Numeric/FACES): 10 - Related Data Allergies Allergy/AdvReac Type Severity Reaction Status Date / Time acetaminophen [From Vicodin] Allergy Nausea Verified 10/10/20 00:18 hydrocodone bitartrate Allergy Nausea Verified 10/10/20 00:18 [From Vicodin] Sulfa (Sulfonamide Allergy Burning, Verified 10/10/20 00:18 Antibiotics) Watery Eyes bandaids Allergy Rash Uncoded 10/10/20 00:18 seasonal Allergy Sinus Uncoded 10/10/20 00:18 Issues Home Meds: Home Meds Baclofen 20 mg PO TID 02/07/20 [History] Teriflunomide [Aubagio] 14 mg PO BEDTIME 02/07/20 [History] Amphetamine/Dextroamphetamine [Adderall] 20 mg PO BID 08/17/20 [History] Gabapentin [Neurontin] 600 mg PO TID 08/17/20 [History] Past Medical History Genitourinary History: Reports: UTI, Recurrent Other Genitourinary History: not present now Other [employer] History: States she has 5 children. History of C-sections. Musculoskeletal History: Reports: Arthritis Other Musculoskeletal History: Both knees. 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 Experiences leg spasms and nerve pain. Psychiatric History: Reports: ADD, Anxiety, Depression Endocrine/Metabolic History: Reports: Obesity/BMI 30+ - Infectious Disease History Infectious Disease History: Reports: Chicken Pox - Past Surgical History HEENT Surgical History: Reports: Oral Surgery ([place] teeth extraction) Female Surgical History: Reports: LEEP Endocrine Surgical History: Reports: Other (See Below) (Partial thyroidectomy) Social & Family History - Family History HEENT: Reports: Cataract, Glaucoma OBGYN: Reports: None Musculoskeletal: Reports: Muscular Dystrophy Psychiatric: Reports: Anxiety, Depression Endocrine/Metabolic: Reports: Diabetes, type II Oncologic: Reports: Breast, Other (See Below) Other Oncologic Family History: Melanoma. - Tobacco Use Tobacco Use Status *Q: Current Some Day Tobacco User - Caffeine Use Caffeine Use: Reports: Coffee, Soda - Alcohol Use Alcohol Use History: Yes - Living Situation & Occupation Living situation: Reports: Occupation: Other ([id number] mom) ED ROS GENERAL - Review of Systems Review Of Systems: See Below Constitutional: Reports: Malaise. Denies: Fever, Chills HEENT: Denies: Hearing Loss, Vision Change Respiratory: Reports: Shortness of Breath, Pleuritic Chest Pain. Denies: Hemoptysis Cardiovascular: Reports: No Symptoms, Chest Pain Endocrine: Reports: Fatigue GI/Abdominal: Reports: Abdominal Pain : Denies: Dysuria, Hematuria Musculoskeletal: Denies: No Symptoms Skin: Reports: Diaphoresis. Denies: Rash Neurological: Reports: Headache, Weakness (Generalized) Psychiatric: Denies: Confusion, Depression Hematologic/Lymphatic: Denies: Easy Bleeding, Easy Bruising Immunologic: Reports: Other (Patient is immunized) ED EXAM, GENERAL - Physical Exam Exam: See Below Exam Limited By: No Limitations General Appearance: Alert, WD/WN, No Apparent Distress Eye Exam: Bilateral Eye: EOMI, Normal Inspection Ears: Normal External Exam, Hearing Grossly Normal Ear Exam: Bilateral Ear: Auricle Normal Nose: Normal Inspection, Normal Mucosa, No Blood Throat/Mouth: Normal Voice, No Airway Compromise, Other (Dry mucous membranes) Head: Atraumatic, Normocephalic Neck: Normal Inspection, Supple, Non-Tender, Full Range of Motion Respiratory/Chest: No Respiratory Distress, Lungs Clear, Normal Breath Sounds, No Accessory Muscle Use, Chest Non-Tender Cardiovascular: Normal Peripheral Pulses, Regular Rate, Rhythm, No Murmur Peripheral Pulses: 2+: Radial (L), Radial (R) GI/Abdominal: Normal Bowel Sounds, Soft, Non-Tender, No Mass Back Exam: Normal Inspection, Full Range of Motion. No: CVA Tenderness (R), CVA Tenderness (L) Extremities: Normal Inspection, Normal Range of Motion, Non-Tender, No Pedal Edema, Normal Capillary Refill Neurological: Alert, Oriented, CN II-XII Intact, Normal Cognition, No Motor/Sensory Deficits Skin Exam: Intact, Normal Color, Diaphoretic Course - Vital Signs Last Recorded V/S: Last Vital Signs Temp 37.1 C 10/27/20 17:48 Pulse 78 10/27/20 19:00 Resp 20 10/27/20 19:00 BP 163/106 H 10/27/20 19:00 Pulse Ox 100 10/27/20 19:00 - Orders/Labs/Meds Orders: Active Orders 24 hr Category Date Time Status Sodium Chloride 0.9% [Normal Saline] 1,000 ml Med 10/27/20 18:30 Active IV ASDIRECTED Sodium Chloride 0.9% [Saline Flush] Med 10/27/20 18:15 Active 10 ml FLUSH ASDIRECTED PRN Peripheral IV Insertion Adult [OM.PC] Routine Oth 10/27/20 18:15 Ordered Medication Orders Sodium Chloride (Normal Saline) 1,000 mls @ 100 mls/hr IV ASDIRECTED NILTON Last Admin: 10/27/20 20:37 Dose: 100 mls/hr Documented by: JACK Sodium Chloride (Sodium Chloride 0.9% 10 Ml Syringe) 10 ml FLUSH ASDIRECTED PRN PRN Reason: Keep Vein Open Labs: Laboratory Tests 10/27/20 10/27/20 Range/Units 18:35 18:35 WBC 15.3 H (3.0-10.3) x10-3/uL RBC 4.60 (3.60-5.20) x10(6)uL Hgb 14.5 (11.4-15.5) g/dL Hct 44.0 (34.2-48.2) % MCV 95.5 (76.7-100.5) fL MCH 31.6 (23.9-33.9) pg MCHC 33.1 (31.9-34.8) g/dL RDW 13.3 (12.3-16.5) % Plt Count 233 (151-488) x10(3)uL MPV 8.5 (7.1-12.4) fL Add Manual Diff Yes Neutrophils % (Manual) 86 H (46-82) % Band Neutrophils % 1 (0-6) % Lymphocytes % (Manual) 7 L (13-37) % Monocytes % (Manual) 5 (4-12) % Eosinophils % (Manual) 1 (0-5) % Sodium 141 (135-145) mmol/L Potassium 3.7 (3.5-5.3) mmol/L Chloride 106 (100-110) mmol/L Carbon Dioxide 27 (21-32) mmol/L BUN 13 (7-18) mg/dL Creatinine 0.7 (0.55-1.02) mg/dL Est Cr Clr Drug Dosing TNP Estimated GFR (MDRD) > 60 (>60) BUN/Creatinine Ratio 18.6 (9-20) Glucose 198 H (80-116) mg/dL Calcium 8.0 L (8.6-10.2) mg/dL Magnesium 2.0 (1.8-2.5) mg/dL Total Bilirubin 0.9 (0.1-1.3) mg/dL AST 20 D (5-25) IU/L ALT 24 D (12-36) U/L Alkaline Phosphatase 101 (56-112) IU/L Total Protein 6.9 (6.0-8.0) g/dL Albumin 3.5 (3.5-5.2) g/dL Globulin 3.4 g/dL Albumin/Globulin Ratio 1.0 Meds: Medications Generic Name Dose Route Start Last Admin Trade Name Dhirajq PRN Reason Stop Dose Admin Sodium Chloride 1,000 mls @ 100 mls/hr 10/27/20 18:30 10/27/20 20:37 Normal Saline IV 100 mls/hr ASDIRECTED NILTON Administration Sodium Chloride 10 ml 10/27/20 18:15 Sodium Chloride 0.9% 10 Ml Syringe FLUSH ASDIRECTED PRN Keep Vein Open Discontinued Medications Generic Name Dose Route Start Last Admin Trade Name Freq PRN Reason Stop Dose Admin Diphenhydramine HCl 50 mg 10/27/20 18:16 10/27/20 19:29 Diphenhydramine 50 Mg/Ml Sdv IVPUSH 10/27/20 18:17 50 mg ONETIME ONE Administration Sodium Chloride 1,000 mls @ 999 mls/hr 10/27/20 18:16 10/27/20 19:25 Normal Saline IV 10/27/20 19:16 999 mls/hr .BOLUS ONE Administration Ketorolac Tromethamine 30 mg 10/27/20 18:16 10/27/20 19:41 Ketorolac 30 Mg/Ml Sdv IVPUSH 10/27/20 18:17 30 mg ONETIME ONE Administration Prochlorperazine Edisylate 10 mg 10/27/20 18:16 10/27/20 19:36 Prochlorperazine 10 Mg/2 Ml Sdv IVPUSH 10/27/20 18:17 10 mg ONETIME ONE Administration - Re-Assessments/Exams Free Text/Narrative Re-Assessment/Exam: 10/27/20 21:30: Patient's white blood cell count was elevated at 15. She did just receive Decadron at the end of last week with her Ocevus. She really had no antecedent problems prior to this occurring. She was outside and it was quite hot. I suspect that she had some heat exhaustion and her headache is very similar to headaches that she has had in the past. Patient has been resting comfortably. She was asleep when I came into the room but was easily awakened. She has had no further vomiting. She states her nausea has resolved. She states she feels much improved. She reports that her headache is down to 2/10. She no longer has any photophobia. She is moving her neck well. She feels that she could be discharged home. She is hemodynamically and neurologically stable at this point. Precautions and reasons for return to the emergency department were discussed with the patient while she was in the emergency department and were detailed in her discharge instructions. Departure - Departure Time of Disposition: 21:40 Disposition: Home, Self-Care 01 Condition: Good (Improved) Clinical Impression: Headache Qualifiers: Headache type: unspecified Headache chronicity pattern: acute headache Intractability: not intractable Qualified Code(s): R51.9 - Headache, unspecified Heat exhaustion Qualifiers: Encounter type: initial encounter Qualified Code(s): T67.5XXA - Heat exhaustion, unspecified, initial encounter Vomiting Qualifiers: Vomiting type: unspecified Vomiting Intractability: non-intractable Nausea presence: with nausea Qualified Code(s): R11.2 - Nausea with vomiting, unspecified - Discharge Information Instructions: Heat Exhaustion, Preventing Heat Exhaustion, Adult, Nausea and Vomiting, Adult, [id number], Dehydration, Adult, [id number] Referrals: Rand Delgado PA-C [Primary Care Provider] - Forms: ED Department Discharge Additional Instructions: You appear to be having a headache like you have had in the past. I think that it may have been related to some heat exhaustion that you sustained today and to your recent infusion of dexamethasone and Ocevus that you have received at the end of this last week. He did appear to be somewhat dehydrated and you have responded well to the IV fluids and the medications that you were given. Your blood tests were reassuring. Your white blood cell count was somewhat elevated but I think this is most probably due to the dexamethasone that you received last week. You should rest. You should drink plenty of fluids. Back to the emergency department for headache, fever, recurrent vomiting, severe weakness or any other concerning signs or symptoms. Sepsis Event Note (ED) - Focused Exam Vital Signs: Vital Signs Temp Pulse Resp BP Pulse Ox 10/27/20 19:00 78 20 163/106 H 100 10/27/20 18:31 73 20 144/80 H 100 10/27/20 18:01 86 20 162/95 H 98 10/27/20 17:52 64 20 157/83 H 98 10/27/20 17:48 37.1 C 72 20 153/88 H 100 - My Orders Last 24 Hours: My Active Orders 10/27/20 18:15 Sodium Chloride 0.9% [Saline Flush] 10 ml FLUSH ASDIRECTED PRN Peripheral IV Insertion Adult [OM.PC] Routine 10/27/20 18:30 Sodium Chloride 0.9% [Normal Saline] 1,000 ml IV ASDIRECTED - Assessment/Plan Last 24 Hours: My Active Orders 10/27/20 18:15 Sodium Chloride 0.9% [Saline Flush] 10 ml FLUSH ASDIRECTED PRN Peripheral IV Insertion Adult [OM.PC] Routine 10/27/20 18:30 Sodium Chloride 0.9% [Normal Saline] 1,000 ml IV ASDIRECTED
[2020-10-27] MEDS ORDERED: Sodium Chloride 0.9% 10 ML Syringe FLUSH PRN (18:15)
[2020-10-27] MEDS ORDERED: Prochlorperazine 10 MG/2 ML SDV IVPUSH ONE (18:16)
[2020-10-27] MEDS ORDERED: diphenhydrAMINE 50 MG/ML SDV IVPUSH ONE (18:16)
[2020-10-27] MEDS ORDERED: Ketorolac 30 MG/ML SDV IVPUSH ONE (18:16)
[2020-10-27] MEDS ORDERED: Sodium Chloride 0.9% 1,000 ML IV ONE (18:16)
[2020-10-27] MEDS ORDERED: Sodium Chloride 0.9% 1,000 ML IV SCH (18:30)
[2020-10-28 07:55] VITALS: BP 141/92; PULSE 74
== END 2020-10-27 22:10 | disposition home or self-care (01) ==
LOC: FB.ED 17:47
DX: T67.5XXA Heat exhaustion, unspecified, initial encounter (principal); R51.9 Headache, unspecified; R11.2 Nausea with vomiting, unspecified; Z88.2 Allergy status to sulfonamides; Z88.5 Allergy status to narcotic agent; Z88.8 Allergy status to other drugs, medicaments and biological substances; Z91.048 Other nonmedicinal substance allergy status; E66.9 Obesity, unspecified; Z68.30 Body mass index [BMI] 30.0-30.9, adult
CPT/HCPCS: 36415; 80053; 83735; 85025; 96374; 96375; 99284; J0780; J1200; J1885; J7030

== ENCOUNTER 2021-10-14 17:39 | Emergency (ER) | payer MEDICAID ==
[2021-10-14] MEDS ORDERED: Ondansetron 4 MG Tab.DIS PO ONE (17:40)
[2021-10-14] MEDS ORDERED: Ketorolac 30 MG/ML SDV IVPUSH ONE (18:03)
[2021-10-14] MEDS ORDERED: Ondansetron 4 MG/2 ML SDV IVPUSH ONE (18:03)
[2021-10-14] MEDS ORDERED: Sodium Chloride 0.9% 1,000 ML IV SCH ×2 (18:15→19:15)
[2021-10-14 19:06] VITALS: BP 128/80; PULSE 67
== END 2021-10-14 20:42 | disposition home or self-care (01) ==
LOC: FB.ED 17:39
DX: E86.0 Dehydration (principal); R79.82 Elevated C-reactive protein (CRP); E71.32 Disorders of ketone metabolism; E66.9 Obesity, unspecified; Z68.30 Body mass index [BMI] 30.0-30.9, adult; Z79.899 Other long term (current) drug therapy; Z88.5 Allergy status to narcotic agent; Z88.2 Allergy status to sulfonamides; Z88.6 Allergy status to analgesic agent; Z91.048 Other nonmedicinal substance allergy status; Z20.822 Contact with and (suspected) exposure to COVID-19
CPT/HCPCS: 36415; 80053; 81001; 83690; 84484; 85025; 86140; 87635; 96361; 96374; 96375; 99282; 99284; J1885; J2405; J7030; Q0162; U0002